=== PATIENT | female | born 1970 | race Caucasian/White ===

== ENCOUNTER 2018-09-26 10:32 | Emergency (ER) | payer OTHER ==
[~2018-09-26] VITALS: Ht 167.6 cm; Wt 70.9 kg
[2018-09-26 10:43] VITALS: BP 121/59; PULSE 82; RESP 18; Ht 167.6 cm; Wt 70.9 kg
[2018-09-26] MEDS ORDERED: DEXAMETHASONE 10 MG/ML 1 ML INJ IM ONE (12:30)
[2018-09-26] MEDS ORDERED: IBUP-1542 PO (13:28)
[2018-09-26] MEDS ORDERED: OXYM15SP34 NASAL (13:28)
[2018-09-26] MEDS ORDERED: CETI10CA PO (13:28)
[2018-09-26] MEDS ORDERED: GUAI-158 PO (13:28)
[2018-09-26] MEDS ORDERED: AMOX1TAB10 PO (13:28)
--- NOTE | 2018-09-26 19:07 | ERD ---
ER Documentation Chief Complaint Chief Complaint sore throat, nose congestion x 1 week HPI History of Present Illness: 48-year-old female with no past medical history coming in today with complaint of throat irritation, postnasal drip, nasal congestion, green nasal mucus. Patient reports symptoms have been present for 3 weeks. Patient reports symptoms went away approximately 10 days ago, then returned 7 days ago and have been consistent. Associated symptoms include headache. At home pharmacological/nonpharmacological treatment for symptoms: Robitussin, DayQuil, allergy medication Denies social concerns; Denies recent foreign travel ROS All systems reviewed and are negative except as per history of present illness. Medications Home Meds Active Scripts Guaifenesin/Dextromethorphan* (Guaifenesin* DM) 1 Each Tablet, 1 TAB PO Q12 PRN for CHEST CONGESTION/COUGH/MUCUS for 7 Days, #30 TAB.SA Prov:MINDI TRAVIS NP 09/26/18 Oxymetazoline Hcl* (Afrin [place]*) 0.05% - 15 Ml [place], 2 SPRAYS NASAL BID for nasal congesion for 3 Days, #1 EA to each nostril; do not use more than 3 days. Throw bottle away after 3 days. If you use more than 35 days, this can worsen your nasal congestion and cause complications. Prov:MINDI TRAVIS NP 09/26/18 Ibuprofen* (Motrin*) 600 Mg Tab, 600 MG PO Q6H PRN for PAIN AND OR ELEVATED TEMP, #30 TAB Prov:MINDI TRAVIS NP 09/26/18 Amoxicillin/Potassium Clav (Amox-Clav 875-125 mg Tablet) 875-125 mg Tab, 1 TAB PO BID for sinus infection for 10 Days, #20 TAB Prov:MINDI TRAVIS NP 09/26/18 Cetirizine Hcl* (Zyrtec*) 10 Mg Capsule, 10 MG PO DAILY for allergies/runny nose/throatsor, #10 TAB.CHEW Prov:MINDI TRAVIS NP 09/26/18 Allergies Allergies: Coded Allergies: No Known Allergy (Unverified , 09/26/18) PMhx/Soc Hx Alcohol Use: No Hx Substance Use: No Hx Tobacco Use: No FmHx Family History: No diabetes, No coronary disease Physical Exam Vitals Vital Signs Date Temp Pulse Resp B/P (MAP) Pulse Ox O2 O2 Flow FiO2 Time Delivery Rate 09/26/18 97.8 82 18 121/59 97 10:43 (79) Physical Exam Const: No acute distress, afebrile Head: Atraumatic, tenderness to palpation over frontal sinuses Eyes: Normal Conjunctiva ENT: Normal External Ears, mouth. Nasal turbinates swollen, nasal mucosa with erythema. Neck: Full range of motion. No meningismus. Resp: Clear to auscultation bilaterally Cardio: Regular rate and rhythm, no murmurs Abd: Soft, non tender, non distended. No guarding, no masses, no rigidity Skin: No petechiae or rashes Back: No midline or flank tenderness Ext: No cyanosis, or edema Neur: Awake and alert x3, speaking in clear sentences, no focal deficits or facial asymmetry Psych: Normal Mood and Affect Results 24 hrs Current Medications Medications Dose Sig/Cinthia Start Time Status Last (Trade) Ordered Route PRN Stop Time Admin Dose Reason Admin 10 mg ONCE ONCE 09/26/18 DC 09/26/18 Dexamethasone IM 12:30 09/26/18 12:16 (Decadron) 12:31 Procedures/MDM ED course includes a thorough examination and history. Medications: Dexamethasone Imaging: Labs: Low suspicion for life-threatening medical emergency. Low suspicion for HEENT medical emergency that requires hospitalization or immediate surgical in tervention. Low suspicion for neurological emergency. Otherwise healthy patient presenting with constellation of symptoms likely representing acute frontal sinusitis as characterized by history, physical exam findings. No respiratory distress, otherwise relatively well appearing and nontoxic. Patient educated on diagnoses, prescriptions, follow-up care, return precautions. Strict return precautions given for worsening condition; questions answered discharge. Disposition for discharge with followup in 2 days with PCP/clinic. Departure Diagnosis: Primary Impression: Acute frontal sinusitis Recurrence: not specified as recurrent Qualified Codes: J01.10 - Acute frontal sinusitis, unspecified Condition: Stable Patient Instructions: Sinusitis, Abx Tx Referrals: COMM[facility]ITY CLINICS YOU HAVE RECEIVED A MEDICAL SCREENING EXAM AND THE RESULTS INDICATE THAT YOU DO NOT HAVE A CONDITION THAT REQUIRES URGENT TREATMENT IN THE EMERGENCY DEPARTMENT. FURTHER EVALUATION AND TREATMENT OF YOUR CONDITION CAN WAIT UNTIL YOU ARE SEEN IN YOUR DOCTORS OFFICE WITHIN THE NEXT 1-2 DAYS. IT IS YOUR RESPONSIBILITY TO MAKE AN APPOINTMENT FOR FOLOW-UP CARE. IF YOU HAVE A PRIMARY DOCTOR --you should call your primary doctor and schedule an appointment IF YOU DO NOT HAVE A PRIMARY DOCTOR YOU CAN CALL OUR PHYSICIAN REFERRAL HOTLINE AT IF YOU CAN NOT AFFORD TO SEE A PHYSICIAN YOU CAN CHOSE FROM THE FOLLOWING [facility] [address] [facility] [address] [facility] [address] [facility] [address] [facility] [address] [facility]. [facility] [address] [facility]. [facility] YOU HAVE RECEIVED A MEDICAL SCREENING EXAM AND THE RESULTS INDICATE THAT YOU DO NOT HAVE A CONDITION THAT REQUIRES URGENT TREATMENT IN THE EMERGENCY DEPARTMENT. FURTHER EVALUATION AND TREATMENT OF YOUR CONDITION CAN WAIT UNTIL YOU ARE SEEN IN YOUR DOCTORS OFFICE WITHIN THE NEXT 1-2 DAYS. IT IS YOUR RESPONSIBILITY TO MAKE AN APPOINTMENT FOR FOLOW-UP CARE. IF YOU HAVE A PRIMARY DOCTOR --you should call your primary doctor and schedule and appointment IF YOU DO NOT HAVE A PRIMARY DOCTOR YOU CAN CALL OUR PHYSICIAN REFERRAL HOTLINE AT . IF YOU CAN NOT AFFORD TO SEE A PHYSICIAN YOU CAN CHOSE FROM THE FOLLOWING [facility]: [facility] [address] [place] [address] [facility] [address] [place] [address] [facility] [address] [place] [address] Additional Instructions: Thank you very much for allowing us to participate in your care. Your health and safety is our top priority at [facility]. It is important to read all discharge instructions and education provided in your discharge packet. *Do saline wash/irrigation twice a day for 1 week. Then continue 2-3 times a week as maintenance to prevent sinus infections from recurring.* Call your primary care doctor TOMORROW for an appointment during the next 2-4 days and bring all the information and medications prescribed. Have prescriptions filled and follow precisely the directions on the label. If the symptoms get worse and your provider is unavailable, return to the Emergency Department immediately. MINDI TRAVIS NP September 26, 2018 19:07
== END 2018-09-26 13:57 | disposition home or self-care (01) ==
LOC: FTE 10:32
DX: J01.10 Acute frontal sinusitis, unspecified (principal)
CPT/HCPCS: 96372; J1100; Z7502